=== PATIENT | female | born 2000 | race African-American/Black ===

== ENCOUNTER 2024-01-10 14:49 | Emergency (ER) | payer SELFPAY ==
[~2024-01-10] VITALS: Ht 162.6 cm; Wt 56.7 kg
[2024-01-10 14:52] VITALS: BP 121/64; TEMP 98.3; O2SAT 100
[2024-01-10 14:53] VITALS: PULSE 71; RESP 18; O2SAT 99
== END 2024-01-10 16:55 | disposition left against medical advice (07) ==
LOC: ER 14:49
DX: S09.90XA Unspecified injury of head, initial encounter (principal); W18.39XA Other fall on same level, initial encounter; Y93.89 Activity, other specified; Y92.89 Other specified places as the place of occurrence of the external cause; Y99.8 Other external cause status
CPT/HCPCS: 99281